=== PATIENT | male | born 1965 | race Caucasian/White ===

== ENCOUNTER 2017-04-24 17:10 | Emergency (ER) | payer OTHER ==
[~2017-04-24] VITALS: Ht 180.3 cm; Wt 80.0 kg
[~2017-04-24 17:10] MED LIST: DOXYCYC MONO100 M1 PO; NORCO1 TA1 PO
[2017-04-24] MEDS ORDERED: BC HEADACH1 PO (17:16)
[2017-04-24 17:59] LABS: HEMATOCRIT 41.4 % (39.0-50.0); HEMOGLOBIN 14.5 g/dl (14.0-18.0); IMMATURE GRANULOCYTES 0.4 % (0.0-1.0); MEAN CELL VOLUME 95.6 fL CALC (80.0-100.0); MEAN CORPUSCULAR HGB 33.5 pG CALC (26.0-32.0); NEUT# 2.61 thou/uL (1.82-7.42); RED BLOOD COUNT 4.33 mill/uL (4.70-6.10)
[2017-04-24 18:11] LABS: INFLUENZA A NONE DETECTED (NONE DETECT); INFLUENZA B NONE DETECTED (NONE DETECT)
[2017-04-24 18:21] LABS: ALBUMIN 4.3 g/dL (3.2-5.0); ALKALINE PHOSPHATASE 92 u/l (38-126); ANION GAP 17 (6-22 (CALC)); BILIRUBIN, TOTAL 0.4 mg/dL (0.0-1.4); BUN 9 mg/dL (9-20); BUN/CREATININE RATIO 10 (12-20 (CALC)); CALCIUM 9.8 mg/dL (8.4-10.2); CARBON DIOXIDE 24 mmol/l (22-30); CHLORIDE 104 mmol/l (95-108); GFR > 60 ML/MIN (>=60 (CALC)); GFR FOR AFR.AMER. > 60 ML/MIN (>=60 (CALC)); GLUCOSE 74 mg/dL (75-110); POTASSIUM 3.7 mmol/l (3.5-5.1); SGOT/AST 23 u/l (17-59); SGPT/ALT 26 u/l (21-72); SODIUM 141 mmol/l (137-146); TOTAL PROTEIN 7.2 g/dL (6.3-8.2)
[2017-04-24] MEDS ORDERED: MOTRIN800 MG PO ×2 (18:21→18:43)
[2017-04-24] MEDS ORDERED: KEFLEX500 MG PO (18:21)
[2017-04-24 18:34] LABS: MYOGLOBIN 23 ng/mL (0 - 121)
[2017-04-24] MEDS ORDERED: AFRIN 12 HOUR0.05 % (18:43)
[2017-04-24] MEDS ORDERED: ZITHROMAX250 MG PO (18:43)
[2017-04-24] MEDS ORDERED: TESSALON PER100 MG PO (18:43)
[2017-04-24 19:15] VITALS: BP 104/73
== END 2017-04-24 19:15 | disposition home or self-care (01) | DRG 203 ==
LOC: ED 17:10
PROVIDERS: Emergency Medicine
DX: J20.9 Acute bronchitis, unspecified (principal); F17.210 Nicotine dependence, cigarettes, uncomplicated